=== PATIENT | female | born 1995 | race Caucasian/White ===

== ENCOUNTER 2018-01-03 20:34 | Emergency (ER) | payer MEDICAID ==
[~2018-01-03] VITALS: Ht 154.9 cm; Wt 59.0 kg
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
--- NOTE | 2018-01-03 20:41 | NUR ---
Patient to ER bed 05 to gown for evaluation. Side rails up. Report given to IDA Lira
[2018-01-03 20:44] VITALS: BP_SYST 129
--- NOTE | 2018-01-03 20:50 | NUR ---
Dr. Groves at bedside.
[2018-01-03] MEDS ORDERED: IBUPROFEN 800 MG TABLET PO ONE (21:00)
--- NOTE | 2018-01-03 21:00 | NUR ---
X-ray at bedside.
[2018-01-03 22:35] VITALS: BP_SYST 110
--- NOTE | 2018-01-03 22:35 | NUR ---
Patient given written and verbal discharge instructions and verbalizes understanding. ER MD discussed with patient the results and treatment provided. Patient in stable condition. ID arm band removed. Rx of Motrin given. Patient educated on pain management and to follow up with PMD. Pain Scale 1/10. Opportunity for questions provided and answered. Medication side effect fact sheet provided.
== END 2018-01-03 22:35 | disposition home or self-care (01) ==
LOC: SED 20:34
DX: S16.1XXA Strain of muscle, fascia and tendon at neck level, initial encounter (principal); S80.12XA Contusion of left lower leg, initial encounter; R03.0 Elevated blood-pressure reading, without diagnosis of hypertension; V89.2XXA Person injured in unspecified motor-vehicle accident, traffic, initial encounter; Y93.89 Activity, other specified; Y92.410 Unspecified street and highway as the place of occurrence of the external cause; Y99.8 Other external cause status
CPT/HCPCS: 72040-TC; 73590-TC; 81025; 99284